=== PATIENT | female | born 1960 | race Caucasian/White ===

== ENCOUNTER 2020-03-27 15:47 | Inpatient (IN) | payer BC ==
[2020-03-27] MEDS ORDERED: Sodium Chloride 0.9% 10 ML Syringe FLUSH PRN (15:57)
[2020-03-27] MEDS ORDERED: HYDROmorphone 0.5 MG/0.5 ML Syringe IVPUSH ONE (15:58)
[2020-03-27] MEDS ORDERED: Sodium Chloride 0.9% 1,000 ML IV SCH (16:45)
[2020-03-27] MEDS ORDERED: Sodium Chloride 0.9% 10 ML Syringe FLUSH ONE (16:49)
[2020-03-27] MEDS ORDERED: Iopamidol 612 MG/ML 100 ML Bottle IV SCH (17:00)
[2020-03-27] MEDS ORDERED: Sodium Chloride 0.9% 80 ML IV SCH (17:00)
[2020-03-27] MEDS ORDERED: HYDROmorphone 0.5 MG/0.5 ML Syringe IM ONE (17:15)
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
--- NOTE | 2020-03-27 18:08 | CRLCR ---
INDICATION: Chest pain with breathing over the right posterior area TECHNIQUE: Chest radiograph 1 view COMPARISON: None FINDINGS: Mediastinum: The mediastinum is normal in appearance. The heart silhouette is normal in size and morphology. Lung: Small lung volumes are present with mild subsegmental atelectasis in the right lung base. A right apical pneumothorax is present with maximal pleural separation of 2.8 cm. No sign of pleural effusion seen. Bone and Soft tissue: Fractures of the right posterior 3rd-6th ribs are noted. Mildly displaced fracture of the right distal clavicle is noted. IMPRESSIONS: 1. A right apical pneumothorax is present with maximal pleural separation of 2.8 cm. 2. Small lung volumes are present with mild subsegmental atelectasis in the right lung base. 3. Fractures of the right posterior 3rd-6th ribs are noted. 4. Mildly displaced fracture of the right distal clavicle is noted. The findings were discussed with Dr. Neves at 6:07 PM. Dictated by Shahid Lobo MD @ 03/27/2020 6:05:51 PM Dictated by: Shahid Lobo MD @ 03/27/2020 18:07:59 (Electronically Signed)
--- NOTE | 2020-03-27 18:10 | CRLCR ---
Indication: Injury and pain Technique: Right shoulder 3 views Comparison: None Findings/Impression: Bones: Displaced fracture present in the mid right clavicle. There are multiple right-sided rib fractures. No fractures about the shoulder. Joint spaces: Unremarkable. Soft tissues: Large right-sided pneumothorax comprising approximately 40 percent of the lung volume. Dictated by Erick Cheema MD @ 03/27/2020 6:08:09 PM Dictated by: Erick Cheema MD @ 03/27/2020 18:08:20 (Electronically Signed)
--- NOTE | 2020-03-27 18:12 | CRLCR ---
Indication: Injury and pain Technique: Right clavicle 2 views Comparison: None Findings/Impression: Bones: Acute mildly comminuted fracture in the mid right clavicle is displaced by 2 cm with 2 cm of overriding. Joint spaces: Unremarkable. Soft tissues: Large right-sided pneumothorax present. Dictated by Erick Cheema MD @ 03/27/2020 6:11:26 PM Dictated by: Erick Cheema MD @ 03/27/2020 18:11:30 (Electronically Signed)
[2020-03-27] MEDS ORDERED: Midazolam 1 MG/ML 5 ML SDV IVPUSH ONE (18:26)
--- NOTE | 2020-03-27 18:29 | CRLCT ---
Indication: multiple rib fractures Technique: Noncontrast CT chest Please note that all CT scans at this facility use dose modulation, iterative reconstruction, and/or weight-based dosing when appropriate to reduce radiation dose to as low as reasonably achievable. Comparison: Radiographs same day Findings: Large right-sided pneumothorax is present with dependent densities in the right lower lobe posteriorly. No pleural effusion. Left lung clear. Mediastinum is midline. Mild vascular calcifications. Visualized thyroid normal. No suspicious adenopathy. Upper abdomen is unremarkable. No vertebral body fracture. Intact sternum. There is partial fusion across T8/T9 vertebral bodies anteriorly. A displaced segmental fracture of the right clavicle is present. There is no retrosternal hematoma. The scapula appears intact. Mildly displaced fracture of the right posterior 2nd rib. Displaced and comminuted fracture of the right posterior 3rd rib with adjacent extrapleural hematoma. Displaced and comminuted fracture of the right posterior 4th rib with adjacent subcutaneous emphysema. Displaced fracture of the right posterior 5th rib. Mildly displaced fracture of the right posterior 6th rib. Mildly displaced fracture of the lateral 4th rib. Mildly displaced and comminuted fracture of the right lateral 5th rib as well as the 6th rib. Mildly displaced fracture of the right lateral 7th rib. Left-sided ribs are intact. Impression: Large right pneumothorax. This has previously been discussed with Dr. Neves at 1807 03/27/[address] Lobo. Multiple right-sided rib fractures involving the posterior right 2nd through 6th ribs and the lateral right 4th through 7th ribs. Mild adjacent extrapleural hematoma formation at the posterolateral right upper lobe. Dependent atelectasis right lower lobe. No mediastinal shift. No pneumomediastinum. Left lung clear. Displaced and comminuted segmental fracture of the right mid clavicle. Please note that all CT scans at this facility use dose modulation, iterative reconstruction, and/or weight-based dosing when appropriate to reduce radiation dose to as low as reasonably achievable. Dictated by Armen Wilson MD @ Mar 27 2020 6:16PM Signed by Dr. Armen Wilson @ Mar 27 2020 6:27PM
[2020-03-27] MEDS ORDERED: Lidocaine 1% 20 ML MDV ONE (18:59)
[2020-03-27] MEDS ORDERED: Lidocaine 1% 20 ML MDV INJECT ONE (19:21)
[2020-03-27] MEDS ORDERED: Lactated Ringers 1,000 ML IV ONE (19:25)
[2020-03-27] MEDS ORDERED: Ondansetron 4 MG/2 ML SDV IVPUSH ONE (20:32)
[2020-03-27] MEDS ORDERED: HYDROmorphone/Normal Saline 15 MG/30 ML PCA IV PRN (21:10)
[2020-03-27] MEDS: Dextrose 5%-Lactated Ringers 1,000 ML IV SCH (21:27)
[2020-03-27] MEDS ORDERED: ceFAZolin 1 GM Vial ONE (21:54)
[2020-03-27] MEDS ORDERED: Sodium Chloride 0.9% 50 ML ONE (21:54)
[2020-03-27] MEDS: Docusate Sodium 100 MG Cap PO SCH (21:59)
[2020-03-27] MEDS ORDERED: Naloxone 0.4 MG/ML SDV IV PRN (22:00)
[2020-03-28] MEDS: Ondansetron 4 MG/2 ML SDV IVPUSH PRN ×5 (03:08→22:49)
[2020-03-28] MEDS ORDERED: ceFAZolin 1 GM Vial ONE (03:29)
[2020-03-28] MEDS ORDERED: Sodium Chloride 0.9% 50 ML ONE (03:29)
[2020-03-28] MEDS: Metoclopramide 10 MG/2 ML SDV ONE (07:55)
[2020-03-28] MEDS: Levothyroxine 25 MCG Tab PO SCH (07:56)
[2020-03-28] MEDS ORDERED: Naloxone 0.4 MG/ML SDV IV PRN (08:00)
[2020-03-28] MEDS ORDERED: Metoclopramide 10 MG/2 ML SDV IV ONE (08:00)
[2020-03-28] MEDS: Dextrose 5%-Lactated Ringers 1,000 ML IV SCH ×2 (08:23→18:58)
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
[2020-03-28] MEDS: fentaNYL/Normal Saline 600 MCG/30 ML PCA Vial IV PRN (08:53)
--- NOTE | 2020-03-28 08:59 | CR ---
Chest 1V Frontal, portable 03/27/2020 at 4:04 PM CLINICAL HISTORY: Chest pain FINDINGS: There are fractures of the second through seventh right ribs posteriorly. Patient has a small apical pneumothorax. There is some atelectasis in the right lung base. There may be some minimal leftward shift. This could be positional. Heart size and pulmonary vascularity are normal. IMPRESSION: Multiple right-sided rib fractures with right pneumothorax. Tension pneumothorax not excluded CHEST: Portable 03/27/2020 at 7:21 PM CLINICAL HISTORY:Chest tube placement COMPARISON:Earlier same day FINDINGS: There has been placement of a Ruiz catheter in the right hemithorax. There is a persistent small apical pneumothorax. No effusion seen Impression: Interval placement of a right chest tube with reduction in the right-sided pneumothorax. There appears to be some shift of the sternum back to the right when compared to prior study
[2020-03-28] MEDS: Docusate Sodium 100 MG Cap PO SCH ×2 (09:13→21:35)
[2020-03-28] MEDS: Spironolactone 25 MG Tab PO SCH (09:13)
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
[2020-03-28] MEDS ORDERED: Metoclopramide 10 MG/2 ML SDV IV PRN (14:00)
[2020-03-28] MEDS: ceFAZolin 1 GM in Premix Bag 1 BAG IV SCH ×2 (14:08→22:49)
--- NOTE | 2020-03-28 16:11 | OR ---
DATE OF PROCEDURE: 03/28/2020 SURGEON: Rodolfo Hamilton MD PREOPERATIVE DIAGNOSIS: Right pneumothorax. POSTOPERATIVE DIAGNOSIS: Right pneumothorax. PROCEDURE: Insertion of right tube thoracostomy ([id number]). ANESTHESIA: Local plus IV sedation. INDICATION FOR PROCEDURE: Please see previously dictated Emergency Room note. DETAILS OF PROCEDURE: The patient was placed in a semi-sitting position in the emergency room. The right anterior chest wall was then prepped and draped while the patient received 5 mg of Versed IV for sedation. The chest wall in the midclavicular line in the 3rd interspace was anesthetized with 1% lidocaine and a transverse incision was made. Using blunt instrumentation, the pleural space was entered. An 18-Gabonese Ruiz catheter was then placed and inflated with 10 mL of air and pulled up snugly against the chest wall. This was placed to suction. Immediately upon entering the pleural space, there was some exit of air consistent with a small component of tension involving the pneumothorax. Upon placement of tube to suction, small amount of air was initially noted, but it appeared to be air leak and this has probably already stopped. The tube was sutured to the skin with 2-0 Ethibond stitch. Dressing applied. Chest x-ray showed good evacuation of pneumothorax and the patient tolerated the procedure well. Rodolfo Hamilton MD /[id number]
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
[2020-03-28] MEDS ORDERED: Ketorolac 30 MG/ML SDV IM ONE (18:16)
[2020-03-28] MEDS ORDERED: Ketorolac 30 MG/ML SDV ONE (22:42)
[2020-03-29] MEDS: Ondansetron 4 MG/2 ML SDV IVPUSH PRN ×5 (03:09→19:49)
[2020-03-29] MEDS: ceFAZolin 1 GM in Premix Bag 1 BAG IV SCH ×3 (05:29→21:27)
[2020-03-29] MEDS: Dextrose 5%-Lactated Ringers 1,000 ML IV SCH (05:35)
--- NOTE | 2020-03-29 08:25 | PN ---
DATE OF SERVICE: 03/29/2020 SUBJECTIVE: Erin will be discussing plan of care for her fractured right clavicle. She is going to be talking to her first. She reports her pain is in control using the GRAIN ELEVATOR AGENT. She has been afebrile. Oral intake 550. Urine output 800. She is passing flatus. Chest tube remains intact. OBJECTIVE: GENERAL: Erin is a pleasant 59-year-old female. VITAL SIGNS: TPR at 0742, 97.9; 70; 16; blood pressure 96/53. HEART: Regular rate and rhythm. LUNGS: Clear. Decreased breath sounds on the right. EXTREMITIES: Without peripheral edema. ASSESSMENT: Insertion of right tube thoracostomy for right pneumothorax, date 03/27/2020. PLAN: 1. May have a light breakfast, then n.p.o. Nursing staff will contact Dr. Juarez in regard to when he will be able to fix that fractured clavicle. 2. We will evaluate p.r.n. or in a.m. Marce Cassidy PA-C /[id number]
[2020-03-29] MEDS: Levothyroxine 100 MCG Tab PO SCH (08:42)
[2020-03-29] MEDS: Docusate Sodium 100 MG Cap PO SCH ×2 (08:50→21:26)
[2020-03-29] MEDS: Spironolactone 25 MG Tab PO SCH (08:50)
--- NOTE | 2020-03-29 09:09 | CR ---
CHEST: Portable 03/29/2020 at 5:21 AM CLINICAL HISTORY:Right pneumothorax, rib fractures COMPARISON:03/28/2020 FINDINGS: Right chest tube remains in place. There is now some upper chest wall convexity. This is near the tube insertion site. This may represent a small chest wall hematoma. Left lung is clear. Impression: Chest tube remains in place. Pneumothorax is been reduced. The Small right upper chest wall hematoma at the chest tube insertion site
[2020-03-29] MEDS: Levothyroxine 25 MCG Tab PO SCH (09:10)
[2020-03-29] MEDS: Ibuprofen 400 MG Tab PO PRN ×2 (11:05→18:23)
[2020-03-29] MEDS: Metoclopramide 10 MG/2 ML SDV ONE (15:10)
--- NOTE | 2020-03-29 16:28 | PCM.CONSN ---
- General Info Date of Service: 03/29/20 Functional Status: Reports: Pain Controlled - Review of Systems General: Reports: No Symptoms Musculoskeletal: Reports: Shoulder Pain Neurological: Reports: No Symptoms Psychiatric: Reports: No Symptoms - Patient Data Vitals - Most Recent: Last Vital Signs Temp 36.4 C 03/29/20 15:35 Pulse 76 03/29/20 15:35 Resp 16 03/29/20 15:35 BP 114/53 L 03/29/20 15:35 Pulse Ox 94 L 03/29/20 15:35 Weight - Most Recent: 72.847 kg I&O - Last 24 Hours: Intake & Output 03/29/20 03/29/20 03/29/20 06:59 14:59 22:59 Intake Total 1350 550 Output Total 551 Balance 799 550 Med Orders - Current: Current Medications Docusate Sodium (Colace) 100 mg PO BID [facility] Last Admin: 03/29/20 08:50 Dose: 100 mg Documented by: Fentanyl Citrate (Fentanyl In Ns 20 Mcg/Ml 30 Ml Date Night Sitter) 0 mcg IV ASDIRECTED PRN; Protocol PRN Reason: Pain Last Admin: 03/28/20 08:53 Dose: 600 mcg Documented by: Dextrose/Lactated Ringer's (Dextrose 5%-Lactated Ringers) 1,000 mls @ 100 mls/hr IV ASDIRECTED [facility] Last Admin: 03/29/20 05:35 Dose: 100 mls/hr Documented by: Cefazolin Sodium/Dextrose 1 gm (/ Premix) 50 mls @ 100 mls/hr IV Q8H [facility] Last Admin: 03/29/20 13:54 Dose: 100 mls/hr Documented by: Ibuprofen (Motrin) 400 mg PO Q6H PRN PRN Reason: Headache Last Admin: 03/29/20 11:05 Dose: 400 mg Documented by: Levothyroxine Sodium (Synthroid) 100 mcg PO ACBREAKFAST [facility] Last Admin: 03/29/20 08:42 Dose: 100 mcg Documented by: Metoclopramide HCl (Reglan) 10 mg IV Q6H PRN PRN Reason: NAUSEA Naloxone HCl (Narcan) 0.1 mg IV ASDIRECTED PRN PRN Reason: decreased respiratory rate Ondansetron HCl (Zofran) 4 mg IVPUSH Q4H PRN PRN Reason: Nausea Last Admin: 03/29/20 15:46 Dose: 4 mg Documented by: Sodium Chloride (Saline Flush) 10 ml FLUSH ASDIRECTED PRN PRN Reason: Keep Vein Open Spironolactone (Aldactone) 200 mg PO DAILY [facility] Last Admin: 03/29/20 08:50 Dose: 200 mg Documented by: Discontinued Medications Cefazolin Sodium (Ancef) Confirm Administered Dose 1 gm .ROUTE .STK-MED ONE Stop: 03/27/20 21:55 Last Admin: 03/27/20 21:59 Dose: Not Given Documented by: Cefazolin Sodium (Ancef) Confirm Administered Dose 1 gm .ROUTE .STK-MED ONE Stop: 03/28/20 03:30 Last Admin: 03/28/20 05:02 Dose: Not Given Documented by: Hydromorphone HCl (Dilaudid) 0.5 mg IVPUSH ONETIME ONE Stop: 03/27/20 15:59 Last Admin: 03/27/20 16:26 Dose: 0.5 mg Documented by: Hydromorphone HCl (Dilaudid) 0.5 mg IM ONETIME ONE Stop: 03/27/20 17:16 Last Admin: 03/27/20 17:21 Dose: 0.5 mg Documented by: Hydromorphone HCl (Dilaudid Date Night Sitter 15 Mg In Ns 30 Ml) 0 mg IV ASDIRECTED PRN; Protocol PRN Reason: ETL APPLICATION DEVELOPER PAIN CONTROL Last Admin: 03/27/20 21:32 Dose: 15 mg Documented by: Sodium Chloride (Normal Saline) 1,000 mls @ 999 mls/hr IV ASDIRECTED [facility] Sodium Chloride (Normal Saline) 80 mls @ 3.5 mls/sec IV ASDIRECTED [facility] Lactated Ringer's (Ringers, Lactated) 1,000 mls @ 999 mls/hr IV BOLUS ONE Stop: 03/27/20 20:25 Last Admin: 03/27/20 19:28 Dose: 999 mls/hr Documented by: Cefazolin Sodium/Dextrose (Ancef) 50 mls @ 100 mls/hr IV Q8H [facility] Last Admin: 03/28/20 05:03 Dose: 100 mls/hr Documented by: Sodium Chloride (Normal Saline) Confirm Administered Dose 50 mls @ as directed .ROUTE .STK-MED ONE Stop: 03/27/20 21:55 Last Admin: 03/27/20 21:59 Dose: Not Given Documented by: Sodium Chloride (Normal Saline) Confirm Administered Dose 50 mls @ as directed .ROUTE .STK-MED ONE Stop: 03/28/20 03:30 Last Admin: 03/28/20 05:02 Dose: Not Given Documented by: Iopamidol (Isovue-300 (61%)) 100 ml IV . DIRECTED [facility] Stop: 03/28/20 08:00 Ketorolac Tromethamine (Toradol) 30 mg IM ONETIME ONE Stop: 03/28/20 18:17 Last Admin: 03/28/20 22:44 Dose: 30 mg Documented by: Ketorolac Tromethamine (Toradol) Confirm Administered Dose 30 mg .ROUTE .STK-MED ONE Stop: 03/28/20 22:43 Last Admin: 03/28/20 22:50 Dose: Not Given Documented by: Levothyroxine Sodium (Levothyroxine) 75 mcg PO ACBREAKFAST [facility] Last Admin: 03/29/20 09:10 Dose: Not Given Documented by: Lidocaine HCl (Xylocaine 1%) Confirm Administered Dose 20 ml .ROUTE .STK-MED ONE Stop: 03/27/20 19:00 Last Admin: 03/27/20 20:34 Dose: Not Given Documented by: Lidocaine HCl (Xylocaine 1%) 20 ml INJECT ONETIME ONE Stop: 03/27/20 19:22 Last Admin: 03/27/20 19:23 Dose: 20 ml Documented by: Metoclopramide HCl (Reglan) Confirm Administered Dose 10 mg .ROUTE .STK-MED ONE Stop: 03/28/20 07:51 Last Admin: 03/29/20 15:10 Dose: Not Given Documented by: Metoclopramide HCl (Reglan) 10 mg IV ONETIME ONE Stop: 03/28/20 08:01 Last Admin: 03/28/20 08:00 Dose: 10 mg Documented by: Midazolam HCl (Versed 1 Mg/Ml) 5 mg IVPUSH ONETIME ONE Stop: 03/27/20 18:27 Last Admin: 03/27/20 19:22 Dose: 5 mg Documented by: Naloxone HCl (Narcan) 0.1 mg IV ASDIRECTED PRN PRN Reason: decreased respiratory rate Ondansetron HCl (Zofran) 4 mg IVPUSH ONETIME ONE Stop: 03/27/20 20:33 Last Admin: 03/27/20 20:38 Dose: 4 mg Documented by: Sodium Chloride (Saline Flush) 10 ml FLUSH ONETIME ONE Stop: 03/27/20 16:50 Last Admin: 03/27/20 20:33 Dose: 10 ml Documented by: - Exam General: Alert, Oriented Extremities: Limited Range of Motion Peripheral Pulses: 2+: Radial (R) Skin: Warm, Dry, Intact Neurological: No New Focal Deficit Sepsis Event Note - Evaluation Sepsis Screening Result: No Definite Risk - Focused Exam Vital Signs: Vital Signs Temp Pulse Resp BP Pulse Ox 03/29/20 15:35 36.4 C 76 16 114/53 L 94 L 03/29/20 13:05 92 L 03/29/20 11:00 36.6 C 81 18 135/65 93 L 03/29/20 07:42 36.6 C 70 16 96/53 L 95 03/29/20 07:26 92 L Date Exam was Performed: 03/29/20 Time Exam was Performed: 16:21 Consult PN Assessment/Plan (1) Fracture of right clavicle SNOMED Code(s): 42578359 Code(s): S42.001A - FRACTURE OF UNSP PART OF RIGHT CLAVICLE, INIT FOR CLOS FX Current Visit: Yes Qualifiers: Encounter type: initial encounter Clavicle location: shaft Fracture type: closed Fracture alignment: displaced Qualified Code(s): S42.021A - Displaced fracture of shaft of right clavicle, initial encounter for closed fracture Assessment:: She does wish to have the clavicle stabilized. I do have the ability to proceed with ORIF but do not have the optimal hardware for her on site. Problem List Initiated/Reviewed/Updated: Yes Plan: Plan to proceed with ORIF right clavicle. Have ordered hardware and instrumentation from [facility]. This will arrive by tomorrow afternoon and will then have to be sterilized and processed. Have scheduled OR for Thursday. All of this was discussed with patient and her .
[2020-03-29] MEDS: fentaNYL/Normal Saline 600 MCG/30 ML PCA Vial IV PRN (21:30)
[2020-03-30] MEDS: Dextrose 5%-Lactated Ringers 1,000 ML IV SCH (03:30)
[2020-03-30] MEDS: Ibuprofen 400 MG Tab PO PRN ×3 (04:08→16:16)
[2020-03-30] MEDS: ceFAZolin 1 GM in Premix Bag 1 BAG IV SCH ×3 (05:18→21:56)
[2020-03-30] MEDS: Ondansetron 4 MG/2 ML SDV IVPUSH PRN ×5 (05:27→21:56)
[2020-03-30] MEDS: Levothyroxine 100 MCG Tab PO SCH (08:12)
[2020-03-30] MEDS: Spironolactone 25 MG Tab PO SCH (08:12)
[2020-03-30] MEDS: Docusate Sodium 100 MG Cap PO SCH ×2 (08:12→21:56)
--- NOTE | 2020-03-30 08:24 | PN ---
DATE OF SERVICE: 03/30/2020 SUBJECTIVE: Erin reports her pain is controlled. She has been up. Chest tube is in place and has put out 48 mL. On chest x-ray, improving. REVIEW OF SYSTEMS: Remainder of review of systems negative for any pertinent positives and negatives. OBJECTIVE: GENERAL: Erin is a pleasant 59-year-old female. She is alert and oriented, resting comfortably in bed. VITAL SIGNS: TPR at 0331, 97.4, 70, 116, blood pressure 126/62. HEENT: Negative. NECK: Supple. HEART: Regular rate and rhythm. LUNGS: Clear. ABDOMEN: Soft and nontender. EXTREMITIES: Without peripheral edema. ASSESSMENT: 1. Insertion of right tube thoracostomy with right pneumothorax, 03/27/2020, Rodolfo Hamilton MD. 2. Right shoulder pain secondary to fracture, right clavicle. PLAN: 1. To proceed with ORIF of right clavicle on 03/31/2020, Declan Juarez MD, at 0800. 2. To remove chest tube dressing. May shower with surgical soap. Replace chest tube dressing and make sure there is no kink in the chest tube itself. We will evaluate p.r.n. or in a.m. Marce Cassidy PA-C /[id number]
--- NOTE | 2020-03-30 10:23 | CR ---
CHEST: Portable 03/30/2020 at 5:03 AM CLINICAL HISTORY:Pneumothorax COMPARISON:Prior day FINDINGS: Right chest tube remains in place. There is no recurrent pneumothorax. There is persistent convexity of the right upper chest wall. This may represent some pleural or chest wall fluid. Hematoma is not excluded. Left lung remains clear. Impression: Chest tube remains in place. There is no recurrent pneumothorax Right upper chest convexity may represent some extra pleural or chest wall fluid. This has increased in size slightly since prior study. Hematoma not excluded
[2020-03-30] MEDS: Sodium Chloride 0.9% 250 ML IV SCH (14:42)
[2020-03-31] MEDS: Sodium Chloride 0.9% 250 ML IV SCH (01:59)
[2020-03-31] MEDS: ceFAZolin 1 GM in Premix Bag 1 BAG IV SCH ×3 (05:24→22:06)
[2020-03-31] MEDS ORDERED: Bupivacaine 0.5% 50 ML MDV ONE (06:40)
[2020-03-31] MEDS ORDERED: fentaNYL 250 MCG/5 ML SDV ONE (07:24)
[2020-03-31] MEDS ORDERED: Rocuronium 50 MG/5 ML Vial ONE (07:25)
[2020-03-31] MEDS ORDERED: Dexamethasone 4 MG/ML SDV ONE (07:25)
[2020-03-31] MEDS ORDERED: Succinylcholine 200 MG/10 ML MDV ONE (07:25)
[2020-03-31] MEDS ORDERED: Neostigmine Methylsulfate 1 MG/ML 5 ML Syringe ONE (07:25)
[2020-03-31] MEDS ORDERED: Propofol 200 MG/20 ML SDV ONE (07:25)
[2020-03-31] MEDS ORDERED: Glycopyrrolate 0.2 MG/ML 5 ML MDV ONE (07:25)
[2020-03-31] MEDS ORDERED: Ondansetron 4 MG/2 ML SDV ONE (07:25)
[2020-03-31] MEDS: Levothyroxine 100 MCG Tab PO SCH (07:57)
[2020-03-31] MEDS ORDERED: Sodium Chloride 0.45% 1,000 ML IV SCH (09:45)
[2020-03-31] MEDS ORDERED: Acetaminophen/HYDROcodone 325-5 MG Tab PO PRN (09:46)
[2020-03-31] MEDS: Spironolactone 25 MG Tab PO SCH (13:22)
[2020-03-31] MEDS: Docusate Sodium 100 MG Cap PO SCH ×2 (13:23→21:05)
[2020-03-31] MEDS: fentaNYL/Normal Saline 600 MCG/30 ML PCA Vial IV PRN (14:59)
[2020-03-31] MEDS: Acetaminophen/oxyCODONE 325-5 MG Tab PO PRN ×2 (17:58→22:05)
[2020-03-31] MEDS ORDERED: Bisacodyl 5 MG Tab PO PRN (20:11)
[2020-03-31] MEDS: Ibuprofen 400 MG Tab PO PRN (21:05)
[2020-04-01] MEDS: Acetaminophen/oxyCODONE 325-5 MG Tab PO PRN ×3 (02:08→10:08)
[2020-04-01] MEDS: ceFAZolin 1 GM in Premix Bag 1 BAG IV SCH (06:01)
[2020-04-01] MEDS: Levothyroxine 100 MCG Tab PO SCH (08:27)
[2020-04-01] MEDS: Docusate Sodium 100 MG Cap PO SCH (08:27)
[2020-04-01] MEDS: Spironolactone 25 MG Tab PO SCH (08:27)
[2020-04-01] MEDS ORDERED: Magnesium Hydroxide 400 MG/5 ML Susp 30 ML Cup PO ONE (08:47)
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
--- NOTE | 2020-04-02 09:32 | CR ---
CHEST: Portable 03/31/2020 at 5:11 AM CLINICAL HISTORY:Pneumothorax COMPARISON:03/30/2020 FINDINGS: Right-sided chest tube remains in place. There is persistent right upper chest wall fluid collection which may be hematoma. It is similar to that of 03/30/2020 study. Left lung is clear Impression: No recurrence of pneumothorax Chest tube remains in place Multiple right upper rib fractures with stable lateral peripheral fluid collection.
--- NOTE | 2020-04-02 09:50 | CR ---
CHEST: Portable 03/31/2020 at 9:59 AM CLINICAL HISTORY:Right pneumothorax COMPARISON:Earlier same day FINDINGS: Chest tube remains in place. There is no evidence of recurrence of pneumothorax. The right the lateral peripheral fluid collection is decreased in density since prior study. There is streaky airspace disease now seen in the left lower lobe. This may be some subsegmental atelectasis. Patient has had open reduction of the clavicle fracture. Impression: No recurrence of pneumothorax Status post open reduction clavicle fracture New patchy left lower lobe airspace disease. This may be some patchy atelectasis
--- NOTE | 2020-04-02 10:55 | CR ---
CHEST: Portable 04/01/2020 at 4:24 AM CLINICAL HISTORY:Chest tube COMPARISON:03/31/2020 FINDINGS: Right chest tube remains in place. There is pleural-based convexity in the right upper lateral chest likely related to hematoma from multiple rib fractures. There is no recurrence of pneumothorax. Left lung is clear Impression: Chest tube remains in place Persistent right upper lateral chest wall convexity likely hematoma. CHEST: Portable 04/01/2020 at 7:45 AM CLINICAL HISTORY:Chest tube removal COMPARISON:Earlier in day FINDINGS: Right chest tube is been removed.. There is no recurrence of pneumothorax. Right upper lateral chest wall hematoma persists. There are some streaky mid and lower lung atelectasis. Impression chest tube removal with no recurrent pneumothorax
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
== END 2020-04-01 11:14 | disposition home or self-care (01) | DRG 135 ==
LOC: JP.ED 15:47 → JP.ICU 19:30 → JP.MS 03-28 08:28
PROVIDERS: ADMIT Surgery; ATTEND Surgery
PROC: 0W9900Z Drainage of Right Pleural Cavity with Drainage Device, Open Approach (ICD-10-PCS; principal; 2020-03-27)
DX: S27.0XXA Traumatic pneumothorax, initial encounter (principal); S22.41XA Multiple fractures of ribs, right side, initial encounter for closed fracture; S42.021A Displaced fracture of shaft of right clavicle, initial encounter for closed fracture; V19.9XXA Pedal cyclist (driver) (passenger) injured in unspecified traffic accident, initial encounter; Z88.1 Allergy status to other antibiotic agents; Z88.2 Allergy status to sulfonamides; Z79.890 Hormone replacement therapy; Z79.899 Other long term (current) drug therapy; E03.9 Hypothyroidism, unspecified; Z90.710 Acquired absence of both cervix and uterus; Z98.890 Other specified postprocedural states; S42.001A Fracture of unspecified part of right clavicle, initial encounter for closed fracture; M80.011A Age-related osteoporosis with current pathological fracture, right shoulder, initial encounter for fracture
CPT/HCPCS: 32551; 36415; 71045; 71045-26; 71250; 73000-RT; 73030-RT; 80048; 85025; 94762; 96372; 96374; 97112-GP; 97140-GP; 97162-GP; 99285; 99285-25; A9270-GY; C1713; J0330; J0690; J1100; J1170; J1790; J1885; J2001; J2250; J2405; J2704; J2710; J2765; J3010; J3490; J7050; J7120; J7121